=== PATIENT | female | born 1955 | race Caucasian/White ===

== ENCOUNTER → 2023-11-17 09:37 | Outpatient (REF) | payer MEDICARE, SELFPAY | LOC: HWWDC 09:37 | PROVIDERS: ATTENDING PHYSICIAN Obstetrics & Gynecology; FAMILY PHYSICIAN Nurse Practitioner Family | DX: Z12.31 Encounter for screening mammogram for malignant neoplasm of breast (principal) | CPT/HCPCS: 77063; 77067 ==

== ENCOUNTER → 2024-02-13 09:54 | Outpatient (REF) | payer MEDICARE, SELFPAY | LOC: HWRCS 09:54 | PROVIDERS: ATTENDING PHYSICIAN Nurse Practitioner Family | DX: R06.09 Other forms of dyspnea (principal) | CPT/HCPCS: 93306 ==

== ENCOUNTER → 2024-02-20 12:34 | Outpatient (REF) | payer MEDICARE, SELFPAY | LOC: RCS 12:34 | PROVIDERS: ATTENDING PHYSICIAN Nurse Practitioner Family | DX: R06.09 Other forms of dyspnea (principal) | CPT/HCPCS: 93017 ==

== ENCOUNTER → 2024-06-12 11:45 | Outpatient (REF) | payer MEDICARE, SELFPAY | LOC: HWRAD 11:45 | PROVIDERS: ATTENDING PHYSICIAN Nurse Practitioner Family | DX: R06.09 Other forms of dyspnea (principal) | CPT/HCPCS: 71046 ==

== ENCOUNTER → 2024-11-20 11:46 | Outpatient (REF) | payer MEDICARE, SELFPAY | LOC: HWWDC 11:46 | PROVIDERS: ATTENDING PHYSICIAN Nurse Practitioner Family | DX: Z12.39 Encounter for other screening for malignant neoplasm of breast (principal) | CPT/HCPCS: 77063; 77067 ==

== ENCOUNTER → 2024-12-13 14:19 | Outpatient (REF) | payer MEDICARE, SELFPAY | LOC: HWRAD 14:19 | PROVIDERS: ATTENDING PHYSICIAN Nurse Practitioner Family | DX: R10.9 Unspecified abdominal pain (principal) | CPT/HCPCS: 76700 ==

== ENCOUNTER → 2025-02-17 12:01 | Outpatient (REF) | payer MEDICARE, SELFPAY | LOC: PAVMRI 12:01 | PROVIDERS: ATTENDING PHYSICIAN Orthopaedic Surgery; FAMILY PHYSICIAN Nurse Practitioner Family | DX: M25.562 Pain in left knee (principal); M25.561 Pain in right knee; M17.12 Unilateral primary osteoarthritis, left knee | CPT/HCPCS: 73721 ==

== ENCOUNTER → 2025-07-23 11:09 | Outpatient (REF) | payer MEDICARE, SELFPAY ==
[2025-07-23 16:02] LABS: Urine Character Clear (Clear)
== END ==
LOC: HWRAD 11:09
PROVIDERS: ATTENDING PHYSICIAN Specialist; FAMILY PHYSICIAN Nurse Practitioner Family
DX: N20.0 Calculus of kidney (principal)
CPT/HCPCS: 74176; 81003

== ENCOUNTER 2025-10-01 08:23 | Outpatient (RCR) | payer MEDICARE, SELFPAY | END 2025-10-01 23:59 | disposition home or self-care (01) | LOC: RPT 08:23 | PROVIDERS: ATTENDING PHYSICIAN Specialist; FAMILY PHYSICIAN Nurse Practitioner Family | DX: R39.81 Functional urinary incontinence (principal); Z73.6 Limitation of activities due to disability; M62.89 Other specified disorders of muscle; R20.0 Anesthesia of skin; R20.2 Paresthesia of skin | CPT/HCPCS: 97110; 97112; 97161; 97530 ==